=== PATIENT | female | born 1985 | race African-American/Black ===

== ENCOUNTER 2016-11-06 17:32 | Emergency (ER) | payer OTHER ==
[~2016-11-06 17:32] MED LIST: ADVAIR 100-501 EAC1 IH; ADVAIR 250-501 EAC1 IH; ADVAIR 2501 DISK W/D PO; ADVAIR INH; ALBUTEROL 0.5ML INH; ALBUTEROL0.83 MG/ML IH; ALBUTEROL17 G1; ALBUTEROL17 GM INH; AMOXICILLIN PO; ANTIVERT PO; BENADRYL PO; BENADRYL25 M1 PO; BENTYL20 MG PO; CARAFATE PO; CLARITIN10 MG PO; DARVOCET-N 1001 TAB PO; FIORICET W/CODE1 CAP PO; FLEXERIL10 M1 PO; KEFLEX500 MG PO; LORATADINE PO; MEDROL DOSEPAK4 MG PO; METRONIDAZOLE PO; MUCINEX100 MG/BOX PO; MYLANTA400 MG PO; NAPROSYN250 M1 PO; NAPROXEN PO; NASAL SPRAY; NASONEX17 GM; PEN-VEE K PO; PERCOCET PO; PHENERGAN PO; PHENERGAN/CODEIN5 ML PO; PREDNISONE PO; PREDNISONE10 MG PO; PRILOSEC PO; ROBITUSSIN-DM118 M1 PO; VOLTAREN75 MG PO; XOPENEX1.25 MG/3 IH; ZANTAC PO; ZOFRAN PO; ZYRTEC10 M2 PO; [UNRECOGNIZED DRUG - OTHER] PO
[2016-11-06] MEDS ORDERED: PROCARDIA10 MG (17:49)
[2016-11-06] MEDS ORDERED: ALBUTEROL17 GM (17:49)
[2016-11-06] MEDS ORDERED: ALPRAZOLAM ODT1 MG (17:49)
[2016-11-06] MEDS ORDERED: NASAL SPRAY30 M2 (17:50)
== END 2016-11-06 20:40 | disposition home or self-care (01) ==
LOC: SED 17:32
DX: H10.32 Unspecified acute conjunctivitis, left eye (principal); J45.909 Unspecified asthma, uncomplicated; F41.9 Anxiety disorder, unspecified; I10 Essential (primary) hypertension
CPT/HCPCS: 99283